=== PATIENT | female | born 1985 | race Caucasian/White ===

== ENCOUNTER 2016-10-06 12:12 | Emergency (ER) | payer MEDICARE, MEDICAID ==
[2013-08-01 13:42] VITALS: BMI 75.6
[~2016-10-06 12:12] MED LIST: COMBIVENT RESPIM4 GM INH; IPRAT-ALBUT 0.5-3 ML NEB; LEVAQUIN500 MG PO; MEDROL DOSE PACK4 MG PO; PREDNISONE20 MG PO; VENTOLIN HFA18 GM INH
[2016-10-06 15:43] LABS: BASOPHILS 0.1 % (0-2); EOSINOPHILS 0.8 % (0-7); HEMATOCRIT 44.8 % (36.0-48.0); IMMATURE GRANULOCYTES 0.1 % (0-5); LYMPHOCYTES 19.4 % (15-50); MCH 27.8 pg (26.0-34.0); MCV 95.7 fL (80.0-100.0); MEAN PLATELET VOLUME 11.8 fL (7.4-10.4); MONOCYTES 7.2 % (2-11); NEUTROPHILS 72.4 % (40-80); PLATELET COUNT 145 10x3/uL (130-400); RBC 4.68 10x6/uL (4.00-5.40); RDW 14.4 % (11.5-14.5); WBC 7.4 10x3/uL (4.8-10.8)
[2016-10-06 16:42] LABS: CALC OSMOLALITY 284 mosm/kg (275-300); CALCIUM 8.1 mg/dL (8.5-10.1); CARBON DIOXIDE 37.1 mmol/L (21.0-32.0); CHLORIDE - SERUM 103 mmol/L (98-107); CKMB 1.4 U/L (0.0-3.6); CREATINE KINASE 100 UL (21-215); CREATININE - SERUM 0.7 mg/dL (0.6-1.3); GLUCOSE 84 mg/dL (74-106); POTASSIUM - SERUM 4.5 mmol/L (3.5-5.1); PRO BNP 136 pg/mL (0-125); SODIUM 144 mmol/L (136-145); THYROID STIMULATING HORMONE 2.69 uIU/mL (0.36-3.74); UREA NITROGEN 11 mg/dL (7-18); eGFR NON AFRICAN AMERICAN > 90 mL/min (90-120)
[2016-10-06 16:45] LABS: TROPONIN-I < 0.017 ng/mL (0.000-0.060)
== END 2016-10-06 17:54 | disposition home or self-care (01) ==
LOC: D.ER 12:12
PROVIDERS: Nurse Practitioner Acute Care
DX: I10 Essential (primary) hypertension (principal); R06.00 Dyspnea, unspecified; J44.9 Chronic obstructive pulmonary disease, unspecified

== ENCOUNTER 2016-11-02 07:58 | Inpatient (IN) | payer MEDICARE, MEDICAID ==
[~2016-11-02] VITALS: Ht 154.9 cm; Wt 195.0 kg
[2016-11-02 08:50] LABS: BASOPHILS 0.2 % (0-2); EOSINOPHILS 0.6 % (0-7); HEMATOCRIT 49.3 % (36.0-48.0); HEMOGLOBIN 13.4 g/dL (12-16); IMMATURE GRANULOCYTES 0.1 % (0-5); LYMPHOCYTES 18.5 % (15-50); MCHC 27.2 g/dL (31.0-37.0); MCV 92.1 fL (80.0-100.0); MEAN PLATELET VOLUME 11.4 fL (7.4-10.4); MONOCYTES 7.3 % (2-11); NEUTROPHILS 73.3 % (40-80); PLATELET COUNT 143 10x3/uL (130-400); RBC 5.35 10x6/uL (4.00-5.40); RDW 16.6 % (11.5-14.5); WBC 8.6 10x3/uL (4.8-10.8)
[2016-11-02 09:02] LABS: ALBUMIN 3.1 g/dL (3.4-5.0); ALKALINE PHOSPHATASE 51 U/L (46-116); ALT (SGPT) 25 U/L (10-68); BILIRUBIN - TOTAL 0.84 mg/dL (0.2-1.3); CALC OSMOLALITY 281 mosm/kg (275-300); CALCIUM 8.3 mg/dL (8.5-10.1); CARBON DIOXIDE 39.5 mmol/L (21.0-32.0); CHLORIDE - SERUM 102 mmol/L (98-107); CREATININE - SERUM 0.8 mg/dL (0.6-1.3); GLUCOSE 95 mg/dL (74-106); POTASSIUM - SERUM 4.7 mmol/L (3.5-5.1); PROTEIN - SERUM 7.3 g/dL (6.4-8.2); SODIUM 141 mmol/L (136-145); UREA NITROGEN 16 mg/dL (7-18); eGFR NON AFRICAN AMERICAN 90 mL/min (90-120)
[2016-11-02 10:11] LABS: CREATINE KINASE 146 UL (21-215); PRO BNP 467 pg/mL (0-125); TROPONIN-I < 0.017 ng/mL (0.000-0.060)
--- NOTE | 2016-11-02 13:20 | NUR ---
RECEIVED PT TO ROOM 2107 VIA W/C AAOX4 SOB ON EXCERTION ASSISTED PT TO BED TOLERATED WELL WILL CONTINUE TO MONITOR
[2016-11-02 13:30] VITALS: BP 138/80
[2016-11-02 13:32] VITALS: BP 138/80; BMI 81.4
[2016-11-02] MEDS ORDERED: ZESTRIL20 MG PO (13:39)
[2016-11-02] MEDS ORDERED: HCTZ25 MG PO (13:41)
[2016-11-02 16:10] VITALS: BP 126/81
[2016-11-02 18:27] LABS: T4 THYROXIN - FREE 1.38 ng/dL (0.76-1.46); THYROID STIMULATING HORMONE 2.23 uIU/mL (0.36-3.74)
[2016-11-02 21:38] VITALS: BP 115/60
--- NOTE | 2016-11-02 21:40 | NUR ---
REC'D. AT [facility]. OF SHIFT COMING OUT OF BATH RM.02 ON AT 3L NC. C/O HAVING SOME LEG CRAMPS. NO DISTRESS OBSERVED. WILL CONTINUE TO MONITOR FOR ANY CHGES.AND FOLLOW CURRENT PLAN OF CARE.
--- NOTE | 2016-11-03 00:28 | NUR ---
UX DESIGNER AT BEDSIDE FOR VS. NEEDS ADDRESSED AT THIS TIME. CALL LIGHT IN REACH. WILL CONT TO MONITOR.
--- NOTE | 2016-11-03 01:18 | NUR ---
ATTEMPTED TO PLACE PT ON BIPAP. PT WAS WILLING TO ATTEMPT. WAS SECURING MASK WHEN PT PULLED IT OFF SAYING I CANT IM SO SORRY BUT I CANT.
--- NOTE | 2016-11-03 01:21 | NUR ---
BIPAP APPLIED VIA RESP.BECAME VERY ANXIOUS STATES I JUST CAN'T STAND THIS MASK PLEASE TAKE IT OFF I FEEL SO CONFINED WITH IT ON.I'M SO SORRY I JUST CAN'T.02 REAPPLIED AT 3L NC. WILL CONTINUE TO MONITOR FOR ANY CHGES
[2016-11-03 03:13] VITALS: BP 97/61
[2016-11-03 06:16] LABS: C-REACTIVE PROTEIN 0.3 mg/dL (0.0-0.9); CALC OSMOLALITY 283 mosm/kg (275-300); CALCIUM 8.8 mg/dL (8.5-10.1); CHLORIDE - SERUM 99 mmol/L (98-107); CHOL - HDL RATIO 3.9 ratio (2.3-4.1); CHOLESTEROL, TOTAL 130 mg/dL (0-200); CKMB 1.2 U/L (0.0-3.6); CREATINE KINASE 155 UL (21-215); CREATININE - SERUM 0.8 mg/dL (0.6-1.3); GLUCOSE 105 mg/dL (74-106); HDL CHOLESTEROL 33 mg/dL (32-96); LDL CHOLESTEROL 83 mg/dL (0-100); LDL-HDL RATIO 2.5 ratio (1.5-3.5); SODIUM 142 mmol/L (136-145); TRIGLYCERIDE 71 mg/dL (30-200); UREA NITROGEN 15 mg/dL (7-18); eGFR NON AFRICAN AMERICAN 90 mL/min (90-120)
[2016-11-03 06:22] LABS: POTASSIUM - SERUM 3.7 mmol/L (3.5-5.1); TROPONIN-I < 0.017 ng/mL (0.000-0.060)
[2016-11-03 06:46] VITALS: BP 90/51
[2016-11-03 08:25] VITALS: BP 123/61
[2016-11-03 11:15] VITALS: Ht 154.9 cm; Wt 195.0 kg
[2016-11-03 13:03] VITALS: BP 100/57
--- NOTE | 2016-11-03 13:48 | NUR ---
RETURN TO ROOM VIA WHEELCHAIR FROM CT. WAITING FOR ECHO. ALERT AND ORIENTED X4. DENIES ANY NEEDS. LUNCH TRAY ORDERED. CONTINUE PLAN OF CARE. PATIENT STATES, "ITS GETTING EASIER TO BREATHE. BED LOCKED AND LOW. CALL LIGHT IN REACH. TWO SIDERAILS UP. RECIEVES LOVENOX INJ.
--- NOTE | 2016-11-03 17:01 | HP ---
PATIENT: KACY EL MEDICAL RECORD: [id number] ACCOUNT: [id number] LOCATION:D. D.2108 : 89 ADMISSION DATE: 11/02/16 HISTORY AND PHYSICAL EXAMINATION HISTORY OF PRESENT ILLNESS: A 31-year-old female that presents to the Emergency Room with increasing shortness of breath over the last week or so. She is morbidly obese. She has not seen a primary care doctor in some time. She was previously followed by Dr. Rocha's office, but apparently was released due to non-payment of bill. According to the patient, chest x-ray shows some mild congestion compatible with failure. She was recently seen in the Emergency Room and started on a blood pressure medicine and a diuretic, which she did not get filled. She states that she had an abnormal sleep study when she was a child, but has never had one as an adult. Clinically, she probably still has an obstructive sleep disorder. She is hypercapnic on her gases. She is admitted this time for further evaluation. Dr. Wiggins is also being consulted from the ER. PAST MEDICAL HISTORY: Significant for some morbid obesity, chronic bronchitis, recently diagnosed hypertension. PAST SURGICAL HISTORY: Previous surgeries include tonsillectomy, ventilation tubes, hernia repair at age 6 months. ALLERGIES: COCONUT. HOME MEDICATIONS: Lisinopril 20 mg a day, HCTZ 25 daily, and Combivent inhaler. FAMILY HISTORY: Significant for cardiovascular disease and diabetes. SOCIAL HISTORY: The patient does drink on a social basis. She has never smoked. REVIEW OF SYSTEMS: She denies any fever. She denies any chest pain. She denies any edema. She does complain of increasing shortness of breath and cough with some wheezing. She denies any abdominal pain, nausea or vomiting. PHYSICAL EXAMINATION: GENERAL: Morbidly obese. HEENT: Sclerae nonicteric. NECK: Soft and supple. CARDIOVASCULAR: Heart is regular. LUNGS: Difficult to auscultate, but there are some coarse sounds. ABDOMEN: Soft. EXTREMITIES: Lower extremities reveal no pitting. NEUROLOGIC: Without any gross focal deficits. SKIN: Reveals multiple tattoos. IMPRESSION: [id number] respiratory failure, morbid obesity, hypertension. PLAN: Admit, check echo, diuretics, O2 supplementation. Will probably need a sleep study upon discharge. See orders for rest of plan. TRANSINT:[id number] Voice Confirmation ID: [id number] DOCUMENT ID: [id number] HISTORY AND PHYSICAL [id number] KACY EL MATTHEW DO at 1701 CC: [id number] DICTATION DATE: 11/02/16 174 PATIENT TRANSPORT ORDERLY: 11/03/16 0135 ADM IN [place] [id number] [place] [id number]
[2016-11-03 17:08] VITALS: BP 128/63
--- NOTE | 2016-11-03 19:19 | NUR ---
ALERT/AWAKE TALKING ON PHONE. DENIES PAIN OR ANY NEEDS. ON 02 AT 3L/NC. RR 20 EVEN U/L. IV IN R FA INTACT SL. ORIENTED TO CALL LIGHT FOR ANY NEEDS.
[2016-11-03 21:27] VITALS: BP 100/58
[2016-11-04 01:46] VITALS: BP 129/64
[2016-11-04 06:24] VITALS: BP 112/62
[2016-11-04 06:30] LABS: CALC OSMOLALITY 281 mosm/kg (275-300); CALCIUM 8.9 mg/dL (8.5-10.1); CHLORIDE - SERUM 97 mmol/L (98-107); CREATININE - SERUM 0.8 mg/dL (0.6-1.3); GLUCOSE 101 mg/dL (74-106); PHOSPHOROUS 5.7 mg/dL (2.5-4.9); POTASSIUM - SERUM 3.8 mmol/L (3.5-5.1); SODIUM 141 mmol/L (136-145); UREA NITROGEN 15 mg/dL (7-18); eGFR NON AFRICAN AMERICAN 90 mL/min (90-120)
--- NOTE | 2016-11-04 06:36 | NUR ---
AWAKE REQUESTED MORE ICE WATER. NO OTHER NEEDS VOICED.
[2016-11-04 06:37] LABS: CARBON DIOXIDE 43.3 mmol/L (21.0-32.0)
[2016-11-04 07:06] LABS: BASOPHILS 0.4 % (0-2); EOSINOPHILS 0.4 % (0-7); HEMATOCRIT 50.8 % (36.0-48.0); HEMOGLOBIN 13.6 g/dL (12-16); IMMATURE GRANULOCYTES 0.1 % (0-5); LYMPHOCYTES 20.6 % (15-50); MCH 24.5 pg (26.0-34.0); MCHC 26.8 g/dL (31.0-37.0); MCV 91.7 fL (80.0-100.0); MONOCYTES 9.1 % (2-11); NEUTROPHILS 69.4 % (40-80); PLATELET COUNT 153 10x3/uL (130-400); RBC 5.54 10x6/uL (4.00-5.40); RDW 17.3 % (11.5-14.5); WBC 8.5 10x3/uL (4.8-10.8)
[2016-11-04 08:22] LABS: IMMUNOGLOBULIN E 62 IU/mL (0-100)
[2016-11-04 09:00] VITALS: BP 112/70; BP 126/49
[2016-11-04 10:20] LABS: HEPATITIS C ANTIBODY 0.1 (0.0-0.9)
[2016-11-04 11:16] LABS: ANA REFLEX - DIRECT Negative (Negative)
[2016-11-04 12:30] VITALS: BP 93/52
--- NOTE | 2016-11-04 15:11 | NUR ---
ALERT AND ORIENTED X4. SHOWER AND LINEN CHANGE COMPLETE. DENIES PAIN. SOB WITH ACTIVITY. ANXIOUS TO GO HOME. EXPLAIN CO2 LEVELS INCREASING. REFUSES BIPAP. PATIENT STATES, "I'M TOO COSTERPHOBIC." DENIES ANY NEEDS. CONTINUE PLAN OF CARE. BED LOCKED AND LOW. CALL LIGHT IN REACH. TWO SIDERAILS UP.
[2016-11-04 16:05] VITALS: BP 119/55
--- NOTE | 2016-11-04 18:08 | EC ---
PATIENT:KACY EL DATE OF SERVICE: 11/02/16 SEX: F MEDICAL RECORD: [id number] DATE OF : [birth year] LOCATION:D.M2 D.210 AGE OF PATIENT: 31 ADMISSION DATE: 11/02/16 REFERRING PHYSICIAN: INTERPRETING PHYSICIAN: SANG VAUGHN MD ECHOCARDIOGRAM REPORT ECHO CHARGES 4 ECHO COMPLETE CLINICAL DIAGNOSIS: CHF ECHOCARDIOGRAPHIC MEASUREMENTS (adult normal given) AC root (d.<3.7cm) 3.0 LV Septum d (<1.2 cm> 1.8 Valve Excursion 1.3 LV Septum (systole) 2.2 Left Atria (s.<4.0cm> 4.5 LVPW d(<1.2cm) 1.4 RV (d.<2.3cm) 2.8 LVPW (sytole) 2.3 LV diastole(<5.6CM) 5.0 MV E-F(>70mm/sec) LV systole 2.7 LVOT Diameter 2.2 MV exc.(>10mm) Est.ejection fraction (50-75%) Pericardial Effusion N DOPPLER: LVIT A 55.0 E 142 LA RVSP 21.1 LVOT 168 AOP1/2T Asc. Ao 231 RVOT 111 RA PA 144 AV Gradient Peak 21.4 AV Mean 10.2 AV Area 2.5 MV Gradient Peak 8.7 MV Mean 2.3 MV Area COMMENTS: Store Sales Leader: Minh HENRYOE Fringe Knotter:Charmaine Borjas TAPE# PACS DATE OF SERVICE: 11/03/2016 Echocardiogram FINDINGS: 1. Left ventricular chamber size is within normal limits. Left ventricular systolic function is mildly reduced. Overall ejection fraction is 40% to 45%. There is mild global hypokinesis throughout all segments with no discrete wall motion abnormalities present. 2. Left atrium is enlarged at 4.5 cm. Right atrium and right ventricular ECHOCARDIOGRAM REPORT [id number] KACY EL chamber sizes are within normal limits. 3. Valvular structures have normal structure and motion. 4. Doppler interrogation reveals no significant valvular insufficiency or stenosis and pulmonary systolic pressure is normal estimated at 21 mmHg. 5. No evidence of pericardial effusion or left ventricular thrombus. TRANSINT:[id number] Voice Confirmation ID: [id number] DOCUMENT ID: [id number] SANG VAUGHN MD at 1808 CC: [id number] DICTATION DATE: 11/03/16 1625 CROSS COUNTRY/TRACK AND FIELD COACH: 11/04/16 1037 ADM IN [place] [id number] [place] [id number]
--- NOTE | 2016-11-04 19:35 | NUR ---
ALERT/AWAKE SITTING UP IN BED WATCHING TV. DENIES PAIN. REQUESTED ORANGE JUICE. ON AT 2L/NC. IV IN R FA INTACT SL. ORIENTED TO CALL LIGHT FOR ANY NEEDS.
--- NOTE | 2016-11-04 20:35 | NUR ---
ADMIN SCHED MEDS. REQUESTED ORANGE JUICE AND PUDDING.
[2016-11-04 21:07] VITALS: BP 108/47
--- NOTE | 2016-11-04 23:51 | NUR ---
HAD JUST FINISHED RESP UPDRAFT [place]. REQUESTED A SANDWICH.
[2016-11-05 01:38] VITALS: BP 98/50
--- NOTE | 2016-11-05 04:31 | NUR ---
AWAKE. DENIES ANY NEEDS OR DISCOMFORTS.
[2016-11-05 05:02] LABS: CALC OSMOLALITY 277 mosm/kg (275-300); CALCIUM 8.9 mg/dL (8.5-10.1); CHLORIDE - SERUM 95 mmol/L (98-107); CREATININE - SERUM 0.9 mg/dL (0.6-1.3); GLUCOSE 96 mg/dL (74-106); SODIUM 138 mmol/L (136-145); UREA NITROGEN 17 mg/dL (7-18); eGFR NON AFRICAN AMERICAN 78 mL/min (90-120)
[2016-11-05 05:04] LABS: CARBON DIOXIDE 44.3 mmol/L (21.0-32.0); POTASSIUM - SERUM 4.5 mmol/L (3.5-5.1)
[2016-11-05 05:32] VITALS: BP 90/46
--- NOTE | 2016-11-05 07:35 | NUR ---
PATIENT IS AWAKE AND ALERT, RESTING IN HER BED WITH THE HEAD ELEVATED 45 DEGREES. SHE DENIES DISCOMFORT AND IS WITHOUT NEEDS. SHE IS WEARING HER O2 PER NC AT 2LPM. SHE UNDERSTANDS THAT SHE MAY GET TO GO HOME AND IS LOOKING FORWARD TO IT.
[2016-11-05 07:47] VITALS: BP 95/57
--- NOTE | 2016-11-05 09:20 | NUR ---
PATIENT TOOK ALL MEDICATIONS WITHOUT DIFFICULTY.
[2016-11-05 11:40] VITALS: BP 115/67
[2016-11-05] MEDS ORDERED: LASIX40 MG PO (13:37)
[2016-11-05] MEDS ORDERED: K-DUR20 MEQ PO (13:37)
[2016-11-05] MEDS ORDERED: ZESTRIL20 MG PO (13:37)
[2016-11-05] MEDS ORDERED: FLORAJEN3 CAPS460 MG PO (13:38)
[2016-11-05] MEDS ORDERED: VIBRAMYCIN 100100 MG PO (13:38)
--- NOTE | 2016-11-05 14:28 | NUR ---
PATIENT RESTING IN HER BED, AWARE THAT SHE IS GOING TO BE DISCHARGED HOME TODAY. IV SL REMOVED FROM THE RIGHT FA. SHE IS WAITING FOR HER PAPERWORK TO BE FINISHED BEFORE CALLING HER RIDE HOME. SHE STATES THAT SHE DOES HAVE O2 AT HOME.
[2016-11-05 15:54] VITALS: BP 116/60
--- NOTE | 2016-11-05 17:39 | NUR ---
DISCUSSED DISCHARGE INSTRUCTIONS. INCLUDED REASONS FOR CO2 RETENTION, ADVANTAGE OF CPAP. DANGERS OF PROLONGED SLEEP APNEA OVER YEARS, EFFECTS OF CHRONIC CO2. FOLLOW UP APPTS DISCUSSED WERE THE PRESCRIPTIONS CALLED IN TO NIKKI VELASQUEZ,.
== END 2016-11-05 17:41 | disposition home or self-care (01) | DRG 189 ==
LOC: D.ER 07:58 → D.M2 12:45
PROVIDERS: Emergency Medicine; Family Medicine; Internal Medicine Pulmonary Disease; ADMIT Family Medicine
DX: J96.22 Acute and chronic respiratory failure with hypercapnia (principal); J18.9 Pneumonia, unspecified organism; I50.21 Acute systolic (congestive) heart failure; J44.1 Chronic obstructive pulmonary disease with (acute) exacerbation; J44.0 Chronic obstructive pulmonary disease with (acute) lower respiratory infection; Z68.45 Body mass index [BMI] 70 or greater, adult; J96.21 Acute and chronic respiratory failure with hypoxia; I11.0 Hypertensive heart disease with heart failure; J30.9 Allergic rhinitis, unspecified; E66.01 Morbid (severe) obesity due to excess calories; Z91.19 Patient's noncompliance with other medical treatment and regimen

== ENCOUNTER → 2016-12-10 19:51 | Outpatient (CLI) | payer MEDICARE, MEDICAID ==
[2016-11-03 11:15] VITALS: BMI 81.2
[~2016-12-10 19:51] MED LIST changes: +FLORAJEN3 CAPS460 MG PO; +HCTZ25 MG PO; +K-DUR20 MEQ PO; +LASIX40 MG PO; +VIBRAMYCIN 100100 MG PO; +ZESTRIL20 MG PO
== END | disposition home or self-care (01) ==
LOC: D.SLEEP 19:51
DX: G47.33 Obstructive sleep apnea (adult) (pediatric) (principal)

== ENCOUNTER → 2017-02-18 19:07 | Outpatient (CLI) | payer MEDICARE, MEDICAID ==
[2016-11-03 11:15] VITALS: BMI 81.2
== END | disposition home or self-care (01) ==
LOC: D.SLEEP 01-29 20:00
DX: G47.33 Obstructive sleep apnea (adult) (pediatric) (principal)